=== PATIENT | male | born 1990 | race Caucasian/White ===

== ENCOUNTER → 2018-03-07 | Outpatient (CLI) | payer OTHER ==
[2018-03-07 08:32] LABS: BASOPHILS # (AUTO) 0.03 x10^3/uL (0-0.1); BASOPHILS % (AUTO) 1 % (0-1); EOSINOPHILS # (AUTO) 0.07 x10^3/uL (0-0.4); EOSINOPHILS % (AUTO) 1 % (1-7); LYMPHOCYTES # (AUTO) 2.13 x10^3/uL (1-3.4); LYMPHOCYTES % (AUTO) 45 % (22-44); MD NO; MEAN CORPUSCULAR HEMOGLOBIN 31.6 pg (27.5-34.5); MEAN CORPUSCULAR HGB CONC 34.6 g/dL (33.2-36.2); MEAN CORPUSCULAR VOLUME 91.6 fL (81-97); MEAN PLATELET VOLUME 7.9 fL (7.4-10.4); MONOCYTES # (AUTO) 0.35 x10^3/uL (0.2-0.8); MONOCYTES % (AUTO) 7 % (2-9); NEUTROPHILS # (AUTO) 2.12 x10^3/uL (1.8-6.8); NEUTROPHILS % (AUTO) 45 % (42-75); PLATELET COUNT 271 x10^3/uL (130-400); RED BLOOD COUNT 5.05 x10^6/uL (4.38-5.82); RED CELL DISTRIBUTION WIDTH 12.6 % (9.4-14.8)
[2018-03-07 08:53] LABS: ALANINE AMINOTRANSFERASE 27 U/L (12-78); ALBUMIN 4.7 g/dL (3.4-5.0); ANION GAP 6 mmol/L (5-15); CALCIUM 9.6 mg/dL (8.5-10.1); CHLORIDE 108 mmol/L (98-107)
[2018-03-07 09:02] LABS: ALKALINE PHOSPHATASE 91 U/L (45-117); BILIRUBIN,TOTAL 0.9 mg/dL (0.2-1.0); CHOLESTEROL, TOTAL 130 mg/dL (140-239); CREATININE 0.96 mg/dL (0.7-1.3); FREE T4 (FREE THYROXINE) 1.18 ng/dL (0.76-1.46); HDL CHOL % 51 % (26-37); HDL CHOLESTEROL (DIRECT) 66 mg/dL (40-60); LDL CHOLESTEROL,CALCULATED 52 mg/dL (54-169); LDL/HDL RATIO 0.8 (0.5-3.0); TOTAL PROTEIN 8.2 g/dL (6.4-8.2); TRIGLYCERIDES 61 mg/dL (50-200); VLDL CHOLESTEROL 12 mg/dL (0-25)
== END | disposition home or self-care (01) ==
LOC: LAB 08:16
PROVIDERS: ATTEND Dermatology
DX: Z00.01 Encounter for general adult medical examination with abnormal findings (principal); C43.9 Malignant melanoma of skin, unspecified; J31.0 Chronic rhinitis; Z85.820 Personal history of malignant melanoma of skin
CPT/HCPCS: 36415; 80053; 80061; 83615; 84439; 84443; 85025